=== PATIENT | female | born 1980 | race Caucasian/White ===

== ENCOUNTER 2018-12-01 19:44 | Emergency (ER) | payer OTHER ==
[~2018-12-01] VITALS: Wt 104.4 kg
[~2018-12-01 19:44] MED LIST: CEPH-443 PO; IBUP-1542 PO; MUPI22OI2 TOP; PREN1TAB49
[2018-12-01 19:57] VITALS: BP 122/55; PULSE 85; RESP 18
== END 2018-12-01 20:45 | disposition home or self-care (01) ==
LOC: E/R 19:44
DX: L03.211 Cellulitis of face (principal)
CPT/HCPCS: 99283